=== PATIENT | female | born 1950 | race Caucasian/White ===

== ENCOUNTER 2019-02-05 14:25 | Emergency (ER) | payer MEDICARE, OTHER ==
[2019-02-05 14:46] VITALS: BP 173/83
--- NOTE | 2019-02-05 16:25 | UC ---
Skin Complaint HPI - HPI Summary HPI Summary: 2 DAYS AGO PATIENT SAT ON A CHAIR THAT WAS COVERED IN [employer]. THINKS SHE GOT A BITE TO HER RIGHT AXILLA THAT DAY. HAS HAD EXPANDING AREA OF PAIN AND REDNESS IN THE AREA. HAS GENERAL MALAISE, MILD STOMACHACHE, HEADACHE AND SUBJECTIVE FEVER. - History of Current Complaint Chief Complaint: UCSkin Time Seen by Provider: 02/05/19 14:58 Stated Complaint: SKIN ISSUE Hx Obtained From: Patient Onset/Duration: Gradual Onset, Lasting Days, Still Present Skin Exposure Onset/Duration: Days Ago Timing: Constant Onset Severity: Mild Current Severity: Moderate Pain Intensity: 6 Pain Scale Used: 0-10 Numeric Location: Discrete - RIGHT AXILLA Character: Pain, Redness Aggravating Factor(s): Touch Alleviating Factor(s): Nothing Associated Signs & Symptoms: Positive: Fever - SUBJECTIVE, Tenderness. Negative : Nausea, Chills Related History: Insect Bite/Sting - Allergy/Home Medications Allergies/Adverse Reactions: Allergies Allergy/AdvReac Type Severity Reaction Status Date / Time Penicillins Allergy Rash Verified 02/05/19 14:47 [id number] Reductase Allergy Joint Pain Verified 02/05/19 14:47 Inhibitor Sulfa (Sulfonamide Allergy GI Upset Verified 02/05/19 14:47 Antibiotics) zinc Allergy Blisters Verified 02/05/19 14:47 Home Medications: Home Medications Desonide [Desonate] 60 gm TOPICAL DAILY PRN 02/05/19 [History Confirmed 02/05/19 ] Latanoprost 0.005%* [Xalatan 0.005%*] 1 drop LEFT EYE BEDTIME 02/05/19 [History Confirmed 02/05/19] Mometasone Furoate 0.5 gm TOPICAL DAILY PRN 02/05/19 [History Confirmed 02/05/19 ] Multivitamin [Multiple Vitamins] 1 tab PO DAILY 02/05/19 [History Confirmed 11/21] PMH/Surg Hx/FS Hx/Imm Hx Other Cancer History: T CELL LYMPHOMA - Surgical History Surgical History: Yes Surgery Procedure, Year, and Place: choley, polyp removal - Family History Known Family History: Positive: Non-Contributory - Social History Alcohol Use: Occasionally Substance Use Type: None Smoking Status (MU): Never Smoked Tobacco Review of Systems All Other Systems Reviewed And Are Negative: Yes Constitutional: Positive: Fever Skin: Positive: Rash Respiratory: Positive: Negative Cardiovascular: Positive: Negative Gastrointestinal: Positive: Abdominal Pain Neurological: Positive: Headache Physical Exam Triage Information Reviewed: Yes Appearance: Well-Appearing, No Pain Distress, Well-Nourished Vital Signs: Initial Vital Signs Temp 99.2 F 02/05/19 14:41 Pulse 107 02/05/19 14:41 Resp 20 02/05/19 14:41 BP 173/83 02/05/19 14:41 Pulse Ox 100 02/05/19 14:41 Vital Signs Reviewed: Yes Eyes: Positive: Conjunctiva Clear ENT: Positive: Hearing grossly normal Neck: Positive: Supple Respiratory: Positive: No respiratory distress, No accessory muscle use Cardiovascular: Positive: Pulses Normal Abdomen Description: Positive: Soft Musculoskeletal: Positive: No Edema Neurological: Positive: Alert Psychological: Positive: Age Appropriate Behavior Skin: Positive: Rashes - 12CM X 7.5 CM AREA OF ERYTHEMA, INDURATION AND TENDERNESS RIGHT AXILLA. NO BLISTERS OR VESICLES. NO DRAINAGE. NO EXCORIATION Course/Dx - Diagnoses Provider Diagnosis: Cellulitis of right axilla Discharge - Sign-Out/Discharge Documenting (check all that apply): Patient Departure All imaging exams completed and their final reports reviewed: No Studies - Discharge Plan Condition: Stable Disposition: HOME Prescriptions: Cephalexin CAP* [Keflex 500 CAP*] 1,000 mg PO BID #28 cap Mupirocin 2% OINT* [Bactroban 2 % Oint*] 1 applic TOPICAL BID #1 tube Patient Education Materials: Cellulitis (ED) Referrals: Rogelio Medley MD [Primary Care Provider] - If Needed Additional Instructions: TAKE THE ANTIBIOTICS FOR THE FULL COURSE. TOPICAL ANTIBIOTIC OINTMENT TWICE DAILY. SEEK FOLLOW-UP IF YOU DEVELOP CONTINUED SPREADING REDNESS OF THE SKIN, PURULENT DRAINAGE, FEVER, INCREASED PAIN OR ANY OTHER CONCERNING SYMPTOMS. - Billing Disposition and Condition Condition: STABLE Disposition: Home
--- NOTE | 2019-02-06 08:00 | UC ---
- Progress Note Progress Note: please notify patient that a new antibiotic has been ERxed It may well be less tolerated than the keflex Needs to be taken with meal may cause sun sensitivity DOXY twice daily (#14) Course/Dx - Diagnoses Provider Diagnoses: Cellulitis of right axilla Discharge - Sign-Out/Discharge Documenting (check all that apply): Post-Discharge Follow Up All imaging exams completed and their final reports reviewed: No Studies - Discharge Plan Condition: Stable Disposition: HOME Prescriptions: Cephalexin CAP* [Keflex 500 CAP*] 1,000 mg PO BID #28 cap DOXYcycline CAP(*) [DOXYcycline 100MG CAP(*)] 100 mg PO BID #14 cap Mupirocin 2% OINT* [Bactroban 2 % Oint*] 1 applic TOPICAL BID #1 tube Patient Education Materials: Cellulitis (ED) Referrals: Rogelio Medley MD [Primary Care Provider] - If Needed Additional Instructions: TAKE THE ANTIBIOTICS FOR THE FULL COURSE. TOPICAL ANTIBIOTIC OINTMENT TWICE DAILY. SEEK FOLLOW-UP IF YOU DEVELOP CONTINUED SPREADING REDNESS OF THE SKIN, PURULENT DRAINAGE, FEVER, INCREASED PAIN OR ANY OTHER CONCERNING SYMPTOMS. - Billing Disposition and Condition Condition: STABLE Disposition: Home
== END 2019-02-05 15:39 | disposition home or self-care (01) ==
LOC: UCEAST 14:25
DX: L03.111 Cellulitis of right axilla (principal); Z88.0 Allergy status to penicillin; Z88.2 Allergy status to sulfonamides; Z85.72 Personal history of non-Hodgkin lymphomas
CPT/HCPCS: 99212; G0463

== ENCOUNTER 2020-04-05 08:15 | Observation (INO) ==
[~2020-04-05 08:15] MED LIST: Buffered Lidocaine 1% SYRIN 1 ml INTRADERM ONE; Lactated Ringers 1000 ml BAG 1,000 ML IV SCH
[2020-04-05] MEDS ORDERED: Buffered Lidocaine 1% SYRIN 1 ml INTRADERM ONE (08:28)
[2020-04-05] MEDS ORDERED: Clindamycin 900 MG/D5W BAG 900 MG/50 ML BAG IVPB ONE (08:28)
[2020-04-05] MEDS ORDERED: Midazolam 2 mg/2 ml VIAL 1 mg/ml 2 ml VIAL (2 mg) ONE ×2 (09:44→12:40)
[2020-04-05] MEDS ORDERED: Lidocaine 2% PF 5 ML VIAL ONE ×2 (09:46→10:42)
[2020-04-05] MEDS ORDERED: Dexmedetomidine 200 mcg/2 ml 2 ml VIAL (200 mcg) ONE (10:42)
[2020-04-05] MEDS ORDERED: ROPIVACAINE 5 MG/ML 30 ML BTL (0.5%) ONE ×2 (10:42→11:24)
[2020-04-05] MEDS ORDERED: Bupivacaine 0.5% SDV PF 30ML VIAL ONE (10:46)
[2020-04-05] MEDS ORDERED: oxyCODONE/Acetamin 5/325 mg TAB PO PRN ×3 (12:54→13:57)
[2020-04-05] MEDS ORDERED: Magnesium Hydroxide LIQ 30 ML UDC PO PRN (12:54)
[2020-04-05] MEDS ORDERED: Lactulose 30 ml UDC PO PRN (12:54)
[2020-04-05] MEDS ORDERED: Ondansetron ODT 4 mg TAB 4 MG TAB PO PRN ×2 (12:54→13:57)
[2020-04-05] MEDS ORDERED: Ondansetron 4 mg VIAL 2 MG/ML 2 ml VIAL IV PRN (12:54)
[2020-04-05] MEDS ORDERED: diPHENhydraMINE 25 mg TAB PO PRN (12:54)
[2020-04-05] MEDS ORDERED: diPHENhydraMINE IV 50 MG/ML 1 ml VIAL (BENADRYL) IV PRN (12:54)
[2020-04-05] MEDS ORDERED: Morphine 2 MG/ML SYRINGE IV PRN (12:54)
[2020-04-05] MEDS ORDERED: fentaNYL 100 mcg/2 ml 50 MCG/ML VIAL IV PRN (13:57)
[2020-04-05] MEDS ORDERED: Naloxone 0.4 mg VIAL 0.4 mg/ml 1 ml VIAL IV PRN (13:57)
[2020-04-05] MEDS: Lactated Ringers 1000 ml BAG 1,000 ML IV SCH (16:17)
[2020-04-05] MEDS: Magnesium Hydroxide LIQ 30 ML UDC PO SCH (20:17)
[2020-04-05] MEDS: Clindamycin 600 MG/D5W BAG 600 MG/50 ML BAG IV SCH (20:17)
[2020-04-06] MEDS ORDERED: Polyethylene Glycol 3350 17 GM PACKET PO PRN (00:01)
[2020-04-06] MEDS: Lactated Ringers 1000 ml BAG 1,000 ML IV SCH (03:38)
[2020-04-06] MEDS: Clindamycin 600 MG/D5W BAG 600 MG/50 ML BAG IV SCH ×2 (03:39→12:04)
[2020-04-06 06:17] LABS: Hematocrit 31 % (35-47); Hemoglobin 11.2 g/dL (12.0-16.0); Mean Platelet Volume 6.7 fL (7.4-10.4); Platelet Count 267 10^3/uL (150-450)
[2020-04-06 07:00] LABS: BUN/Creatinine Ratio 15.7 (8-20); Calcium 9.2 mg/dL (8.6-10.3); EGFR African American 100.4 (>60); Potassium 4.5 mmol/L (3.5-5.0)
[2020-04-06] MEDS: Magnesium Hydroxide LIQ 30 ML UDC PO SCH (08:28)
[2020-04-06] MEDS ORDERED: Vitamin THERAPEUTIC TAB PO SCH (09:00)
[2020-04-06 11:26] VITALS: BP 145/55
== END 2020-04-06 13:20 | disposition home or self-care (01) ==
LOC: OR 08:15 → SSU 08:15
PROVIDERS: ADMIT Orthopaedic Surgery Adult Reconstructive Orthopaedic Surgery; ATTEND Orthopaedic Surgery Adult Reconstructive Orthopaedic Surgery